=== PATIENT | male | born 1985 | race Caucasian/White ===

== ENCOUNTER 2019-09-05 04:14 | Emergency (ER) | payer MEDICAID ==
[~2019-09-05] VITALS: Ht 193 cm; Wt 95.3 kg
[2019-09-05 04:28] VITALS: BP 109/73
[2019-09-05] MEDS ORDERED: Acetaminophen 500mg (ES) tab ORAL ONE (04:30)
[2019-09-05] MEDS ORDERED: NAPROXEN250 MG ORAL (04:31)
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
--- NOTE | 2019-09-05 05:22 | NUR ---
ER Nurse Note: Pt back from radiology; awaiting results. Pt calm, no signs of distress. Ice pack given. Will continue to montior.
--- NOTE | 2019-09-05 05:52 | Diagnostic Imaging Report ---
Indication: Right elbow pain Findings: 3 views of the right elbow were obtained. There is evidence of a joint effusion with elevation of the fat pads but no definite fracture or malalignment is identified. IMPRESSION: Joint effusion. No acute fracture seen.
--- NOTE | 2019-09-05 05:52 | Diagnostic Imaging Report ---
Indication: Pain Findings: 2 views of the right forearm were obtained. No acute fractures, malalignment, erosions or periostitis are identified. . Soft tissues are unremarkable. Impression: Negative for acute injury
--- NOTE | 2019-09-05 05:52 | Diagnostic Imaging Report ---
Indication: Right arm pain Findings: 2 views of the right humerus were obtained. No acute fractures, malalignment, erosions or periostitis are identified. Bone mineralization is within normal limits. Soft tissues are unremarkable. Impression: Negative examination of the humerus
--- NOTE | 2019-09-05 05:53 | Diagnostic Imaging Report ---
Indication: Right wrist pain COMPARISON: None Findings: 3 views of the right wrist were obtained. No acute fractures, malalignment, erosions or periostitis are identified. Soft tissues are unremarkable. Impression: No acute findings.
[2019-09-05 06:05] VITALS: BP 114/74
--- NOTE | 2019-09-05 06:05 | NUR ---
ER Nurse Note: Pt seen, treated, medically cleared for discharge by ERMD. Discharge instuctions and prescriptions given with repeat verbalization by pt. Emphasized to follow up with primay care provider. All orders completed per ERMD orders. Pt a&ox4, VSS, no signs of distress; pt ambulatory with steady gait. ID band removed. All questions answered per pt's questions. Sling applied. Pt left with all belongings, left with own transportation.
== END 2019-09-05 06:05 | disposition home or self-care (01) ==
LOC: EMR 04:28
DX: M79.601 Pain in right arm (principal); M25.421 Effusion, right elbow; M25.531 Pain in right wrist; W05.2XXA Fall from non-moving motorized mobility scooter, initial encounter; Y92.9 Unspecified place or not applicable
CPT/HCPCS: 73060; 73070; 73090; 73110; Z7502; 99284